=== PATIENT | male | born 2000 | race Asian ===

== ENCOUNTER 2021-03-25 11:59 | Emergency (ER) | payer OTHER ==
[~2021-03-25] VITALS: Ht 170.2 cm; Wt 81.8 kg
[2021-03-25 12:00] VITALS: BP 132/78
--- NOTE | 2021-03-25 12:33 | REP ---
INDICATION: pain after twisting. COMPARISON: None. TECHNIQUE: Four views of the right ankle were obtained. FINDINGS: There is soft tissue swelling over the lateral malleolus. There is no evidence of fracture or dislocation. There is no significant arthropathy. IMPRESSION: Lateral ankle sprain. <Electronically signed by Everett Miller > 03/25/21 [id number]
== END 2021-03-25 13:34 | disposition home or self-care (01) ==
LOC: M ED 11:59
DX: S93.401A Sprain of unspecified ligament of right ankle, initial encounter (principal); W00.9XXA Unspecified fall due to ice and snow, initial encounter; Y92.138 Other place on military base as the place of occurrence of the external cause; Y99.1 Military activity